=== PATIENT | male | born 1980 | race Caucasian/White ===

== ENCOUNTER 2016-12-18 10:50 | Emergency (ER) | payer OTHER ==
[~2016-12-18] VITALS: Ht 177.8 cm; Wt 86.1 kg
[2016-12-18 10:52] VITALS: BP 133/82
[2016-12-18] MEDS ORDERED: LIDOCAINE 1%, 20ML ONE (11:26)
[2016-12-18] MEDS ORDERED: LIDOCAINE 1%, 20ML SQ ONE (11:30)
[2016-12-18] MEDS ORDERED: BACITRACIN ZINC OINT 500U/GM, 0.9 GM ONE (11:48)
== END 2016-12-18 12:29 | disposition home or self-care (01) ==
LOC: ED 12:10
DX: S61.411A Laceration without foreign body of right hand, initial encounter (principal); W26.0XXA Contact with knife, initial encounter; Y93.89 Activity, other specified; Y92.89 Other specified places as the place of occurrence of the external cause; Y99.8 Other external cause status
CPT/HCPCS: 12002